=== PATIENT | female | born 1970 | race Caucasian/White ===

== ENCOUNTER → 2017-09-03 | Emergency (ER) | payer BC ==
[~2017-09-03] VITALS: Ht 182.9 cm; Wt 94.5 kg
[~2017-09-03] MED LIST: ATOXIMETIN-B1 CAP PO; PROAIR HFA0.09 MG/AC IH
[2017-09-03 13:07] VITALS: TEMP 98.6
[2017-09-03 15:30] VITALS: BP 127/77; PULSE 80
== END ==
LOC: COL.ER 12:52
DX: T59.4X1A Toxic effect of chlorine gas, accidental (unintentional), initial encounter (principal); E03.9 Hypothyroidism, unspecified; F17.210 Nicotine dependence, cigarettes, uncomplicated; Z98.51 Tubal ligation status
CPT/HCPCS: J7030

== ENCOUNTER 2018-10-11 09:58 | Emergency (ER) | payer BC ==
[~2018-10-11] VITALS: Ht 182.9 cm; Wt 93.2 kg
[2018-10-11] MEDS ORDERED: NP THYROID60 MG PO (10:06)
[2018-10-11] MEDS ORDERED: CELEBREX50 MG PO (10:06)
[2018-10-11] MEDS ORDERED: WELLBUTRIN 100100 MG PO (10:07)
[2018-10-11 10:28] LABS: BASO % 0.3 % (0.0-2.0); EOS # 0.1 (0.0-0.7); EOS % 0.8 % (0-4.0); GRAN # 4.2 (1.4-6.5); GRAN % 63.4 % (42.2-75.2); HEMATOCRIT 42.1 % (37.0-47.0); LYMPH # 1.9 (1.2-3.4); LYMPH % 28.5 % (20.0-51.0); MEAN CELL VOLUME 94 fl (80.0-100.0); MEAN CORPUSCULAR HEMOGLOBIN 31 pg (27.0-31.0); MEAN CORPUSCULAR HGB CONC 33 g/dl (33.0-37.0); MEAN PLATELET VOLUME 10.6 fl (7.4-10.4); MONO # 0.5 (0.1-0.6); MONO % 6.8 % (1.7-9.3); PLATELET COUNT 230 K/mm3 (130-400); RED BLOOD COUNT 4.46 M/mm3 (4.10-5.30); REDCELL DISTRIBUTION WIDTH-CV 12.2 % (11.5-14.5)
[2018-10-11 10:36] LABS: INR 0.9 (0.8-3.0); PROTHROMBIN TIME 10.2 SECONDS (9.7-12.8)
[2018-10-11 10:38] LABS: PARTIAL THROMBOPLASTIN TIME 32.4 SECONDS (26.0-37.0)
[2018-10-11 10:58] LABS: ALANINE AMINOTRANSFERASE 17 U/L (9-52); ALBUMIN 4.3 gm/dL (3.5-5.0); ALKALINE PHOSPHATASE 78 U/L (50-136); ANION GAP 9 mmol/L (7-16); AST,SGOT 48 U/L (15-37); BILIRUBIN,TOTAL 0.6 mg/dL (0.0-1.0); BLOOD UREA NITROGEN 9 mg/dL (7-17); CALCIUM 10.1 mg/dL (8.4-10.2); CARBON DIOXIDE 28 mmol/L (22-30); CHLORIDE 107 mmol/L (98-107); CREATININE, serum 0.86 (0.52-1.25); GLUCOSE 102 mg/dL (74-106); POTASSIUM 4.1 mmol/L (3.4-5.0); SODIUM 143 mmol/L (137-145); TOTAL PROTEIN 7.8 gm/dL (6.4-8.2)
[2018-10-11 11:09] LABS: TROPONIN-I < 0.012 ng/mL (0.000-0.035)
[2018-10-11 14:40] VITALS: BP 133/91; PULSE 78; TEMP 98.1
== END 2018-10-11 14:40 | disposition home or self-care (01) ==
LOC: COL.ER 09:58
PROVIDERS: Family Medicine
DX: R07.89 Other chest pain (principal)
CPT/HCPCS: J1885; J2405; J7030

== ENCOUNTER 2021-06-25 10:11 | Outpatient (RCR) | payer BC ==
[~2021-06-25 10:11] MED LIST changes: +CELEBREX50 MG PO; +NP THYROID60 MG PO; +WELLBUTRIN 100100 MG PO
== END 2021-07-01 | disposition home or self-care (01) ==
LOC: WSPT
DX: M25.552 Pain in left hip (principal)

== ENCOUNTER 2021-07-23 09:45 | Outpatient (RCR) | payer BC | END 2021-07-31 | disposition home or self-care (01) | LOC: WSPT | DX: M25.552 Pain in left hip (principal) ==